=== PATIENT | female | born 1985 | race Caucasian/White ===

== ENCOUNTER 2017-02-18 15:42 | Emergency (ER) | payer MEDICAID ==
[2017-02-18 16:37] VITALS: BP 135/87
[2017-02-18] MEDS ORDERED: Lidocaine 1% 50 ML MDV INJECT ONE (17:13)
[2017-02-18] MEDS ORDERED: LORazepam 2 MG/ML SDV IVPUSH ONE (17:13)
[2017-02-18] MEDS ORDERED: Sodium Chloride 0.9% 10 ML Syringe FLUSH PRN (17:13)
--- NOTE | 2017-02-18 17:25 | EDM.PDOC ---
ED HPI GENERAL MEDICAL PROBLEM - General Chief Complaint: Neurological Problem Stated Complaint: HEAD LAC Time Seen by Provider: 02/18/17 17:00 Source of Information: Reports: Patient, Family (mother) History Limitations: Reports: No Limitations - History of Present Illness INITIAL COMMENTS - FREE TEXT/NARRATIVE: 31-year-old female presents for evaluation and treatment of injuries sustained from a fall following a seizure. Patient reports that she was at a birthday alliance party today. She states that she had a seizure and fell and hit her head on one of the games. She has a laceration to the right posterior parietal scalp. Patient has a history of seizures. She currently sees a neurologist. She has been taking her seizure medications as prescribed. She has had multiple seizures today. Seizures normally lasts between 3 and 5 seconds and are a tonic- like seizure. States that when she gets these "cluster " seizures she does take Ativan. She took one dose this morning but has not taken her second dose which she normally will take. She reports some pain with movement the left lateral neck, headache and some lightheadedness. She denies any nausea, vomiting, chest pain, shortness of breath, abdominal pain or syncope. Reports that she has recently been started on gabapentin by her neurologist. Mom feels that this may be worsening her seizures. Patient currently resides in [place] in a group homelike setting. Onset: Today Head Pain Score (Numeric/FACES): 5 - Related Data Allergies Allergy/AdvReac Type Severity Reaction Status Date / Time No Known Allergies Allergy Verified 02/11/16 23:39 Home Meds: Home Meds LORazepam 1 mg PO DAILY PRN 02/11/16 [History] Melatonin 3 mg PO BEDTIME PRN 02/11/16 [History] Meloxicam [Mobic] 7.5 mg PO DAILY PRN 02/11/16 [History] Multivit with Calcium,Iron,Min [Multivitamins N-[id number]] 1 each PO DAILY [History] Vitamin D/Iron 1 tab PO DAILY 02/11/16 [History] Zonisamide [Zonegran] 300 mg PO BID 02/11/16 [History] metFORMIN [Glucophage] 1,000 mg PO DAILY 02/11/16 [History] Gabapentin [Neurontin] 300 mg PO BID 02/18/17 [History] Phenytoin Sodium Extended [Dilantin] 400 mg PO BEDTIME 02/18/17 [History] methylPREDNISolone Acetate [Depo-Medrol] 40 mg IM ONETIME 02/18/17 [History] Past Medical History HEENT History: Reports: Impaired Vision LAB TECH History: Reports: Polycystic Ovaries Musculoskeletal History: Reports: Other (See Below) Other Musculoskeletal History: club foot-congential Neurological History: Reports: Seizure Endocrine/Metabolic History: Reports: Obesity/BMI 30+ Other Endocrine/Metabolic History: hormone imbalance Dermatologic History: Reports: Other (See Below) Other Dermatologic History: hives - Past Surgical History Other Neurological Surgeries/Procedures: ej nerve stimulator Social & Family History - Family History Family Medical History: Noncontributory - Tobacco Use Smoking Status *Q: Never Smoker - Caffeine Use Caffeine Use: Reports: Coffee, Soda, Tea Other Caffeine Use: caffeine - Recreational Drug Use Recreational Drug Use: No - Living Situation & Occupation Living situation: Reports: Single, Alone Occupation: Employed ED ROS GENERAL - Review of Systems Review Of Systems: See Below HEENT: Denies: Nosebleed Respiratory: Denies: Shortness of Breath Cardiovascular: Reports: Lightheadedness. Denies: Chest Pain GI/Abdominal: Denies: Abdominal Pain, Nausea, Vomiting Musculoskeletal: Reports: Neck Pain (left lateral neck with movement) Skin: Reports: Wound (right scalp) Neurological: Reports: Seizure. Denies: Syncope - Physical Exam Exam: See Below Exam Limited By: No Limitations General Appearance: Alert, WD/WN, No Apparent Distress Eye Exam: Bilateral Eye: EOMI, Normal Inspection, PERRL Ears: Normal External Exam Nose: Normal Inspection Throat/Mouth: Normal Inspection, Normal Lips, Normal Voice, No Airway Compromise Head Exam: Scalp Lacerations (4cm right posterior parietal scalp) Neck: Normal Inspection, Supple, Non-Tender, Full Range of Motion Respiratory/Chest: No Respiratory Distress, Lungs Clear, Normal Breath Sounds Cardiovascular: Normal Peripheral Pulses, Regular Rate, Rhythm, No Murmur GI/Abdominal: Normal Bowel Sounds, Soft, Non-Tender Neuro Exam (Abbreviated): Alert, Oriented, CN II-XII Intact, Normal Cognition, Other (normal finger to nose testing, normal heel to sanchez testing; ashlie had 3 seizures, that I witnessed, in the ER, lasting about 2-5 seconds, mother present and witnessed, stated these were normal seizures for her, tonic like seizure) Extremities: Normal Inspection Psychiatric: Normal Affect, Normal Mood Skin Exam: Warm, Dry, Normal Color ED PROCEDURES - Laceration/Wound Repair Right Lateral Head Lac/wound length in cm: 4 Appearance: Subcutaneous, Linear Distal NVT: Neuro & Vascular Intact, No Tendon Injury Anesthetic Type: Local Local Anesthesia - Lidocaine (Xylocaine): 1% Plain Local Anesthetic Volume: 3cc Skin Prep: Chlorhexidine (Hibiciens), Saline Closed with: Shaq # of Sutures: 8 Sterile Dressing Applied: Nurse Tetanus Status Addressed: Yes Complications: No Course - Vital Signs Last Recorded V/S: Last Vital Signs Temp 36.3 C 02/18/17 16:34 Pulse 83 02/18/17 16:34 Resp 20 02/18/17 16:34 BP 135/87 02/18/17 16:34 Pulse Ox 100 02/18/17 16:34 - Orders/Labs/Meds Labs: Laboratory Tests 02/18/17 02/18/17 Range/Units 17:36 17:36 WBC 9.26 (3.98-10.04) K/mm3 RBC 4.46 (3.98-5.22) M/mm3 Hgb 13.6 (11.2-15.7) gm/L Hct 40.4 (34.1-44.9) % MCV 90.6 (79.4-94.8) fl MCH 30.5 (25.6-32.2) pg MCHC 33.7 (32.2-35.5) g/dl RDW Std Deviation 40.8 (36.4-46.3) fL Plt Count 360 (182-369) K/mm3 MPV 9.3 L (9.4-12.3) fl Neut % (Auto) 67.8 (34.0-71.1) % Lymph % (Auto) 21.4 (19.3-51.7) % [place] % (Auto) 8.4 (4.7-12.5) % Eos % (Auto) 2.2 (0.7-5.8) Baso % (Auto) 0.0 L (0.1-1.2) % Neut # (Auto) 6.28 H (1.56-6.13) K/mm3 Lymph # (Auto) 1.98 (1.18-3.74) K/mm3 [place] # (Auto) 0.78 H (0.24-0.36) K/mm3 Eos # (Auto) 0.20 (0.04-0.36) K/mm3 Baso # (Auto) 0.00 L (0.01-0.08) K/mm3 Sodium 141 (136-145) mEq/L Potassium 3.9 (3.5-5.1) mEq/L Chloride 107 (98-107) mEq/L Carbon Dioxide 24 (21-32) mEq/L Anion Gap 13.9 (5-15) BUN 13 (7-18) mg/dL Creatinine 0.8 (0.55-1.02) mg/dL Est Cr Clr Drug Dosing 97.13 mL/min Estimated GFR (MDRD) > 60 (>60) mL/min BUN/Creatinine Ratio 16.3 (14-18) Glucose 91 (74-106) mg/dL Calcium 9.1 (8.5-10.1) mg/dL Total Bilirubin 0.2 (0.2-1.0) mg/dL AST 24 (15-37) U/L ALT 47 (14-59) U/L Alkaline Phosphatase 123 H (46-116) U/L Total Protein 7.3 (6.4-8.2) g/dl Albumin 3.9 (3.4-5.0) g/dl Globulin 3.4 gm/dL Albumin/Globulin Ratio 1.2 (1-2) Phenytoin 16.0 (10.0-20.0) ug/mL Meds: Medications Discontinued Medications Generic Name Dose Route Start Last Admin Trade Name Freq PRN Reason Stop Dose Admin Lidocaine HCl 50 ml 02/18/17 17:13 02/18/17 17:40 Xylocaine 1% INJECT 02/18/17 17:14 50 ml ONETIME ONE Administration Lorazepam 1 mg 02/18/17 17:13 02/18/17 17:38 Ativan IVPUSH 02/18/17 17:14 1 mg ONETIME ONE Administration Sodium Chloride 10 ml 02/18/17 17:13 02/18/17 17:40 Saline Flush FLUSH 10 ml ASDIRECTED PRN Administration Keep Vein Open - Radiology Interpretation Free Text/Narrative:: Head CT Technique: Multiple axial sections through the brain were obtained. Intravenous contrast was not utilized. Comparison: No prior intracranial imaging. Findings: Ventricles along with basal cisterns and sulci over convexities are within normal limits for the patient's age. No abnormal parenchymal densities are seen. No evidence of intracranial hemorrhage. No midline shift or mass effect is seen. Bone window settings were reviewed which shows the visualized sinuses to appear clear. No acute calvarial abnormality is seen. Impression: 1. Nothing acute is identified on noncontrast head CT exam. - Re-Assessments/Exams Free Text/Narrative Re-Assessment/Exam: 02/18/17 19:07 Seizures have improved with Ativan. 8 shaq placed the head. She tolerated this well. Her tetanus is up to date. Will discharge home. Discharge instructions as documented. Departure - Departure Time of Disposition: 19:07 Disposition: Home, Self-Care 01 Condition: Good Clinical Impression: Laceration, Seizures - Discharge Information Instructions: Laceration Care, Adult, Seizure, Adult Referrals: PCP,None [Primary Care Provider] - Forms: ED Department Discharge Additional Instructions: OTC Tylenol or Motrin as needed for headaches. You may wash the wounds with gentle soap and water. Do not soak the wounds. Bacitracin or Neosporin to the wounds twice a day. Have the shaq removed in 5-7 days. your primary care provider can do this. have someone Look at the Wound Daily to Monitor for Signs of Infection Such As Increased Swelling, Pus or Redness. Present to the Clinic or the ER Should These Develop. Please Return to the ER If your Symptoms Change or Worsen. Continue with Your Current Seizure Medications. Contact Her Neurologist to let them know You Are Having more Seizures.
--- NOTE | 2017-02-18 18:21 | CT ---
Head CT Technique: Multiple axial sections through the brain were obtained. Intravenous contrast was not utilized. Comparison: No prior intracranial imaging. Findings: Ventricles along with basal cisterns and sulci over convexities are within normal limits for the patient's age. No abnormal parenchymal densities are seen. No evidence of intracranial hemorrhage. No midline shift or mass effect is seen. Bone window settings were reviewed which shows the visualized sinuses to appear clear. No acute calvarial abnormality is seen. Impression: 1. Nothing acute is identified on noncontrast head CT exam. Diagnostic code #1
== END 2017-02-18 19:15 | disposition home or self-care (01) ==
LOC: JD.ED 15:42
DX: R56.9 Unspecified convulsions (principal); S01.01XA Laceration without foreign body of scalp, initial encounter; E66.9 Obesity, unspecified; Z68.35 Body mass index [BMI] 35.0-35.9, adult; Z79.899 Other long term (current) drug therapy; W19.XXXA Unspecified fall, initial encounter
CPT/HCPCS: 12002; 36415; 70450; 80053; 80185; 85025; 96374; 99284; J2060; J7050; 99283-25